=== PATIENT | female | born 1955 | race Caucasian/White ===

== ENCOUNTER → 2017-09-09 | Outpatient (CLI) | payer MEDICARE, OTHER ==
[~2017-09-09] MED LIST: AMOXICILLIN500 MG PO; ASTEPRO 0.15%30 ML BOTH NARES; DETROL LA4 MG PO; DIAZEPAM10 MG PO; DIOVAN80 MG PO; GLIMEPIRIDE1 MG PO; KENALOG,ARISTOC80 GM TP; LEVETIRACETAM500 MG PO; MIRTAZAPINE30 MG PO; OXYCODONE-ACET1 EACH PO; PYRIDOSTIGMINE60 MG PO; REMERON30 M2 PO; REMERON45 MG PO; SYNTHROID150 MCG PO; VALIUM10 MG PO; VITAMIN D250000 UNIT PO; VYTORIN 10/81 TABLET PO; WARFARIN SODIU7.5 MG PO; WARFARIN SODIUM10 MG PO; WARFARIN SODIUM5 MG PO
== END | disposition home or self-care (01) ==
LOC: CDC 12:35
DX: Z01.810 Encounter for preprocedural cardiovascular examination (principal); T84.218A Breakdown (mechanical) of internal fixation device of other bones, initial encounter; R94.31 Abnormal electrocardiogram [ECG] [EKG]
CPT/HCPCS: 93000

== ENCOUNTER 2017-09-26 05:13 | Day surgery (SDC) | payer OTHER ==
[~2017-09-26] VITALS: Ht 182.9 cm; Wt 63.5 kg
[~2017-09-26 05:13] MED LIST changes: +INCRUSE ELLI62.5 MCG IH; +MESTINON60 MG PO; +PERCOCET 5/31 TABLET PO; +XYZAL5 MG PO
[2017-09-26 06:21] LABS: INTER. NORMALIZED RATIO 1.2
[2017-09-26 06:24] LABS: PTT 29.9 SEC (25-37)
[2017-09-26 06:30] VITALS: BP 131/79
[2017-09-26] MEDS ORDERED: NORCO 5/3251 TABLET PO (08:10)
[2017-09-26 10:04] VITALS: BP 163/69
[2017-09-26 11:10] VITALS: BP 150/66
[2017-09-26 12:40] VITALS: BP 158/67
== END 2017-09-26 12:54 | disposition home or self-care (01) ==
LOC: SDC 05:13
PROVIDERS: Surgery
PROC: 0PP004Z Removal of Internal Fixation Device from Sternum, Open Approach (ICD-10-PCS; principal; 2017-09-26)
PROC: 0PB00ZZ Excision of Sternum, Open Approach (ICD-10-PCS; principal; 2017-09-26)
DX: T84.218A Breakdown (mechanical) of internal fixation device of other bones, initial encounter (principal); J44.9 Chronic obstructive pulmonary disease, unspecified; I10 Essential (primary) hypertension; E03.9 Hypothyroidism, unspecified; D68.62 Lupus anticoagulant syndrome; E78.5 Hyperlipidemia, unspecified; G70.00 Myasthenia gravis without (acute) exacerbation; Z79.01 Long term (current) use of anticoagulants; Z86.711 Personal history of pulmonary embolism; G40.909 Epilepsy, unspecified, not intractable, without status epilepticus; Z87.891 Personal history of nicotine dependence; Z88.1 Allergy status to other antibiotic agents; Z91.040 Latex allergy status
CPT/HCPCS: 82948; 85610; 85730; J0330; J0690; J2250; J3010